=== PATIENT | female | born 1940 | race African-American/Black ===

== ENCOUNTER 2017-09-26 08:09 | Emergency (ER) | payer OTHER ==
[~2017-09-26] VITALS: Ht 167.6 cm; Wt 80.0 kg
[2017-09-26] MEDS ORDERED: ATOR10TA69 PO (08:15)
[2017-09-26] MEDS ORDERED: HYDR12.529 PO (08:15)
[2017-09-26] MEDS ORDERED: LISI2.5T47 PO (08:15)
[2017-09-26] MEDS ORDERED: ATEN-42 PO (08:15)
[2017-09-26] MEDS ORDERED: METF500T4 PO (08:15)
[2017-09-26 08:45] LABS: BASOPHILS % 0.6 % (0.0-2.0); CHLORIDE 107 mEq/L (98-107); EOSINOPHILS % 4.1 % (0.0-5.0); HEMATOCRIT. 31.2 % (36.0-48.0); HEMOGLOBIN. 10.9 g/dL (12.0-16.0); LYMPHOCYTES % 43.3 % (20.0-50.0); MEAN CORPUSCULAR HEMOGLOBIN 29.4 pg (28.0-32.0); MEAN CORPUSCULAR VOLUME 84.4 fL (81.0-99.0); MEAN PLATELET VOLUME 7.5 fl (7.4-10.4); MONOCYTES % 8.6 % (2.0-8.0); NEUTROPHILS % 43.4 % (40.0-76.0); PLATELET 230 x1000/uL (130-400); RED CELL DISTRIBUTION WIDTH 14.3 % (11.6-14.6)
[2017-09-26 08:47] LABS: INR 1.1; PROTHROMBIN TIME 11.1 sec (9.4-11.6)
[2017-09-26 14:14] VITALS: BP 118/87
[2017-09-26] MEDS ORDERED: IOHEXOL-350 100 ML BOTTLE ONE (15:25)
== END 2017-09-26 15:56 | disposition short-term general hospital (02) ==
LOC: ER 08:20
DX: R07.89 Other chest pain (principal); K80.20 Calculus of gallbladder without cholecystitis without obstruction; E11.9 Type 2 diabetes mellitus without complications; I11.9 Hypertensive heart disease without heart failure; Z88.6 Allergy status to analgesic agent; Z98.62 Peripheral vascular angioplasty status
CPT/HCPCS: 36415; 71045; 71275; 80053; 83880; 84484; 85025; 85610; 93005; 99285; Q9967